=== PATIENT | male | born 1970 | race Hispanic/Latino ===

== ENCOUNTER 2024-12-09 16:13 | Inpatient (IN) | payer MEDICARE ==
[~2024-12-09] VITALS: Ht 149.9 cm; Wt 79.4 kg
[~2024-12-09 16:13] MED LIST: ASPIRIN81 MG PO; ATORVASTATIN CA20 MG PO; BENICAR20 MG PO; ELIQUIS5 MG PO; FENOFIBRATE145 MG PO; JARDIANCE10 MG PO; LEVEMIR100 UNIT/1 SQ; LEVOTHYROXINE75 MCG PO; LISINOPRIL10 MG PO; LOVENOX120 MG/0.8 SC; METFORMIN HCL500 MG PO; OZEMPIC1 MG/0.71 SQ; TRICOR145 MG PO
[2024-12-09 16:37] LABS: BASOPHILS % 0.5 % (0.0-1.0); EOSINOPHILS % 3.5 % (0.0-6.0); LYMPHOCYTES % 22.1 % (18.0-39.1); MONOCYTES % 6.2 % (4.4-11.3); NEUTROPHILS % 67.4 % (38.7-80.0); RED CELL DISTRIBUTION WIDTH 13.0 % (11.7-14.4)
[2024-12-09 16:52] VITALS: TEMP 99.2
[2024-12-09 16:53] LABS: EST GLOMERULAR FILTRATION RATE 67.0 ML/MIN (>=60)
[2024-12-09] MEDS ORDERED: Morphine 2mg Syringe 2 MG/ML SYR IV PRN (17:15)
[2024-12-09] MEDS ORDERED: ONDANSETRON HCL INJ 2MG/ML 2ML 2 MG/ML VIAL IV PRN (17:15)
[2024-12-09] MEDS: SODIUM CHLORIDE 0.9% 1000ML 1,000 ML IV SCH (17:22)
[2024-12-09 20:00] VITALS: PULSE 80; RESP 17
[2024-12-09 20:29] VITALS: BP 135/84; PULSE 74; RESP 20; TEMP 98.6; O2SAT 100
[2024-12-09 21:00] VITALS: BP 135/84; PULSE 74; RESP 20; TEMP 98.6; O2SAT 100
[2024-12-09] MEDS ORDERED: LANTUS 3ML100 UNITS/ SQ (22:03)
[2024-12-09] MEDS ORDERED: NOVOLOG100 UNITS1 SC (22:12)
[2024-12-10] VITALS (8 sets, daily range): BP systolic 135–163; BP diastolic 79–93; PULSE 72–84; RESP 18–20; TEMP 97.2–98.7; O2SAT 97–100
[2024-12-10 05:03] LABS: BASOPHILS % 0.6 % (0.0-1.0); EOSINOPHILS % 6.6 % (0.0-6.0); LYMPHOCYTES % 34.7 % (18.0-39.1); MONOCYTES % 7.4 % (4.4-11.3); NEUTROPHILS % 50.3 % (38.7-80.0); RED CELL DISTRIBUTION WIDTH 12.9 % (11.7-14.4)
[2024-12-10 05:56] LABS: EST GLOMERULAR FILTRATION RATE 64.0 ML/MIN (>=60)
[2024-12-10] MEDS ORDERED: ONDANSETRON HCL INJ 2MG/ML 2ML 2 MG/ML VIAL IV PRN (08:45)
[2024-12-10] MEDS ORDERED: HYDRALAZINE HCL 20 MG/ML VIAL IV PRN (08:45)
[2024-12-10] MEDS ORDERED: DEXTROSE 50% SYRINGE 50 ML IV PRN (08:45)
[2024-12-10] MEDS ORDERED: HYDROCODONE/APAP 7.5MG-325MG 1 EA TAB PO PRN (08:45)
[2024-12-10] MEDS: FENOFIBRATE 134 MG TAB PO SCH (09:00)
[2024-12-10] MEDS: LEVOTHYROXINE SODIUM 100 MCG TAB PO SCH (10:03)
[2024-12-10] MEDS: SENNA-S TABLET PO SCH (10:03)
[2024-12-10] MEDS: EMPAGLIFLOZIN 10 MG TABLET PO SCH (10:03)
[2024-12-10] MEDS: INSULIN LISPRO 100 UNIT/1 ML 3ML VIAL SQ SCH ×3 (11:20→15:18)
[2024-12-10] MEDS: INSULIN GLARGINE 100 UNITS/ML VIAL SQ SCH (15:31)
[2024-12-10] MEDS ORDERED: INSULIN GLARGINE 100 UNITS/ML VIAL SQ SCH (17:00)
[2024-12-10] MEDS: ATORVASTATIN 40 MG TAB PO SCH (21:44)
[2024-12-11] VITALS (9 sets, daily range): BP systolic 102–142; BP diastolic 40–97; PULSE 72–84; RESP 14–22; TEMP 97.7–99.8; O2SAT 97–100
[2024-12-11 05:34] LABS: BASOPHILS % 0.7 % (0.0-1.0); EOSINOPHILS % 5.3 % (0.0-6.0); LYMPHOCYTES % 35.8 % (18.0-39.1); MONOCYTES % 7.5 % (4.4-11.3); NEUTROPHILS % 50.5 % (38.7-80.0); RED CELL DISTRIBUTION WIDTH 12.9 % (11.7-14.4)
[2024-12-11 06:27] LABS: EST GLOMERULAR FILTRATION RATE 78.0 ML/MIN (>=60)
[2024-12-11] MEDS: METOPROLOL SUCCINATE 25 MG TAB XL PO SCH (09:33)
[2024-12-12] VITALS: BP 127/82; PULSE 79; RESP 18; TEMP 98.5; O2SAT 97
[2024-12-12 04:00] VITALS: BP 113/73; PULSE 75; RESP 19; TEMP 98.1; O2SAT 97
[2024-12-12 05:42] LABS: INR 1.09
[2024-12-12 08:00] VITALS: BP 101/73; PULSE 72; RESP 17; TEMP 98.1; O2SAT 98
[2024-12-12] MEDS ORDERED: ROCURONIUM BROMIDE 1 ML IV ONE (08:59)
[2024-12-12] MEDS ORDERED: LIDOCAINE HCL 2% LOCAL INJ 5 ML SDV VIAL INJ ONE (08:59)
[2024-12-12] MEDS ORDERED: FENTANYL CITRATE/PF 100MCG/2 ML INJ ONE (08:59)
[2024-12-12] MEDS ORDERED: MIDAZOLAM HCL 2 MG/2 ML VIAL ONE (08:59)
[2024-12-12] MEDS ORDERED: SEVOFLURANE INHAL SOLN 250 ML PEN BTL ONE (08:59)
[2024-12-12] MEDS ORDERED: PROPOFOL IV EMULSION 10 MG/ML 20 ML VIAL ONE (08:59)
[2024-12-12] MEDS ORDERED: ACETAMINOPHEN 1000 MG/100 ML 100 ML IV ONE (08:59)
[2024-12-12] MEDS ORDERED: ONDANSETRON HCL INJ 2MG/ML 2ML 2 MG/ML VIAL IV PRN (11:45)
[2024-12-12] MEDS ORDERED: CARISOPRODOL 350 MG TAB PO PRN (11:45)
[2024-12-12] MEDS ORDERED: PROMETHAZINE HCL (IM) 25 MG/ML VIAL IM PRN (11:45)
[2024-12-12] MEDS ORDERED: ACETAMINOPHEN 325 MG TAB PO PRN (11:45)
[2024-12-12] MEDS ORDERED: Morphine 10mg syringe 10 MG/ML INJ IM PRN (11:45)
[2024-12-12] MEDS ORDERED: ZOLPIDEM TARTRATE 5 MG TAB PO PRN (11:45)
[2024-12-12] MEDS ORDERED: OXYCODONE/ACETAMINOPHEN 5-325 1 EACH TABLET PO PRN (11:45)
[2024-12-12] MEDS ORDERED: ONDANSETRON HCL INJ 2MG/ML 2ML 2 MG/ML VIAL ONE (11:53)
[2024-12-12] MEDS ORDERED: DEXAMETHASONE SOD PHOS INJ 4 MG/ML SDV ONE (11:53)
[2024-12-12] MEDS ORDERED: PHENYLEPHRINE HCL 1% 10 MG/ML VIAL ONE (11:56)
[2024-12-12] MEDS ORDERED: SODIUM CHLORIDE 0.9% 100 ML ONE (11:59)
[2024-12-12] MEDS ORDERED: SUGAMMADEX SODIUM 200 MG/2 ML VIAL IV ONE (12:39)
[2024-12-12 14:20] VITALS: BP 115/68; PULSE 68; RESP 18; TEMP 97.6; O2SAT 95
[2024-12-12 16:00] VITALS: BP 102/71; PULSE 71; RESP 17; TEMP 97.5; O2SAT 100
[2024-12-12] MEDS: LACTATED RINGER'S 1,000 ML IV SCH (16:14)
[2024-12-12 20:00] VITALS: BP 112/77; PULSE 82; RESP 18; TEMP 97.9; O2SAT 92
[2024-12-13 05:19] LABS: BASOPHILS % 0.1 % (0.0-1.0); EOSINOPHILS % 0.0 % (0.0-6.0); LYMPHOCYTES % 12.1 % (18.0-39.1); MONOCYTES % 4.3 % (4.4-11.3); NEUTROPHILS % 83.3 % (38.7-80.0); RED CELL DISTRIBUTION WIDTH 12.8 % (11.7-14.4)
[2024-12-13 05:56] LABS: EST GLOMERULAR FILTRATION RATE 59.0 ML/MIN (>=60)
[2024-12-13 06:19] LABS: PHOSPHORUS 3.5 MG/DL (2.3-4.7)
[2024-12-13 08:58] VITALS: BP_SYST 129; BP_DIAS 77; BP_DIAS 79; PULSE 90; RESP 16; TEMP 98.4; O2SAT 97
[2024-12-13] MEDS ORDERED: MAGNESIUM SULFATE 2GM/50ML IV ONE (09:00)
[2024-12-13] MEDS: MAGNESIUM SULFATE 2GM/50ML 50 ML IV ONE (09:41)
[2024-12-13 12:58] VITALS: BP 122/76; PULSE 80; RESP 16; TEMP 98.6; O2SAT 97
[2024-12-13 16:23] VITALS: BP 109/72; PULSE 85; RESP 16; TEMP 98.9; O2SAT 97
[2024-12-13] MEDS: INSULIN GLARGINE 100 UNITS/ML VIAL SQ SCH (16:43)
[2024-12-13] MEDS: INSULIN LISPRO 100 UNIT/1 ML 3ML VIAL SQ SCH (16:47)
[2024-12-13 21:01] VITALS: BP 139/80; PULSE 82; RESP 18; TEMP 98.1; O2SAT 99
[2024-12-13 21:10] VITALS: BP 139/80; PULSE 82; RESP 18; TEMP 98.1; O2SAT 99
[2024-12-13 23:50] VITALS: BP 120/74; PULSE 84; RESP 18; TEMP 97; O2SAT 97
[2024-12-14] VITALS (7 sets, daily range): BP systolic 108–121; BP diastolic 72–84; PULSE 76–85; RESP 16–18; TEMP 97.3–99; O2SAT 96–99
[2024-12-14 05:47] LABS: BASOPHILS % 0.5 % (0.0-1.0); EOSINOPHILS % 2.0 % (0.0-6.0); LYMPHOCYTES % 21.8 % (18.0-39.1); MONOCYTES % 7.3 % (4.4-11.3); NEUTROPHILS % 68.0 % (38.7-80.0); RED CELL DISTRIBUTION WIDTH 13.1 % (11.7-14.4)
[2024-12-14 06:52] LABS: EST GLOMERULAR FILTRATION RATE 72.0 ML/MIN (>=60)
[2024-12-14] MEDS: INSULIN LISPRO 100 UNIT/1 ML 3ML VIAL SQ SCH (16:38)
[2024-12-14] MEDS: MAGNESIUM/ALUMINUM/SIMETHICONE 30 ML UDC PO PRN (16:40)
[2024-12-15 03:57] VITALS: BP 112/75; PULSE 70; RESP 16; TEMP 97.9; O2SAT 99
[2024-12-15 08:13] VITALS: BP 122/86; PULSE 71; RESP 17; TEMP 97.9; O2SAT 98
[2024-12-15 09:38] VITALS: BP 122/86; PULSE 71; RESP 17; TEMP 97.9; O2SAT 98
[2024-12-15 16:39] VITALS: BP 119/85; PULSE 74; RESP 16; TEMP 98.2; O2SAT 97
[2024-12-15 20:00] VITALS: BP 118/82; PULSE 82; RESP 16; TEMP 98.3; O2SAT 100
[2024-12-16] VITALS (7 sets, daily range): BP systolic 106–127; BP diastolic 69–86; PULSE 76–84; RESP 18–20; TEMP 97.5–98.6; O2SAT 98–100
[2024-12-16] MEDS: INSULIN GLARGINE 100 UNITS/ML VIAL SQ SCH (17:28)
[2024-12-17 05:00] VITALS: BP 127/90; PULSE 75; RESP 18; TEMP 97.8; O2SAT 97
[2024-12-17 05:27] LABS: BASOPHILS % 0.4 % (0.0-1.0); EOSINOPHILS % 4.7 % (0.0-6.0); LYMPHOCYTES % 30.0 % (18.0-39.1); MONOCYTES % 7.1 % (4.4-11.3); NEUTROPHILS % 57.4 % (38.7-80.0); RED CELL DISTRIBUTION WIDTH 12.7 % (11.7-14.4)
[2024-12-17 05:54] LABS: EST GLOMERULAR FILTRATION RATE 89.0 ML/MIN (>=60)
[2024-12-17 07:45] VITALS: BP_SYST 133; BP_DIAS 3; BP_DIAS 93; PULSE 76; RESP 16; TEMP 97.8; O2SAT 99
[2024-12-17 11:45] VITALS: BP 118/66; PULSE 74; RESP 16; TEMP 97.6; O2SAT 99
[2024-12-17 15:45] VITALS: BP 107/73; PULSE 75; RESP 16; TEMP 98.1; O2SAT 99
[2024-12-17 20:00] VITALS: BP 128/80; PULSE 79; RESP 18; TEMP 97.9; O2SAT 98
[2024-12-18 04:00] VITALS: BP_SYST 114; BP_SYST 141; BP_DIAS 77; BP_DIAS 82; PULSE 77; RESP 18; TEMP 97.5; TEMP 97.9; O2SAT 98
[2024-12-18 07:00] VITALS: BP 111/79; PULSE 73; RESP 18; TEMP 97.8; O2SAT 99
[2024-12-18] MEDS ORDERED: ONDANSETRON HCL 4 MG ORAL DISINTEGRATING TAB PO PRN (08:45)
[2024-12-18] MEDS ORDERED: ZOLPIDEM TARTRATE 5 MG TAB PO PRN (08:45)
[2024-12-18 11:00] VITALS: BP 119/77; PULSE 82; RESP 18; TEMP 98.4; O2SAT 95
[2024-12-18] MEDS ORDERED: OXYCODONE/ACETAMINOPHEN 5-325 1 EACH TABLET PO PRN (11:45)
[2024-12-18 15:00] VITALS: BP 121/86; PULSE 79; RESP 18; TEMP 98.4; O2SAT 95
== END 2024-12-18 17:50 | DRG 519 ==
LOC: ER 16:16 → ERHOLD 17:10 → MED/SURG 21:08
PROVIDERS: ADMIT Internal Medicine; ATTEND Internal Medicine
PROC: 00NY0ZZ Release Lumbar Spinal Cord, Open Approach (ICD-10-PCS; principal; 2024-12-09)
PROC: 01NB0ZZ Release Lumbar Nerve, Open Approach (ICD-10-PCS; 2024-12-09)
DX: M48.062 Spinal stenosis, lumbar region with neurogenic claudication (principal); G83.4 Cauda equina syndrome; S32.059A Unspecified fracture of fifth lumbar vertebra, initial encounter for closed fracture; M48.04 Spinal stenosis, thoracic region; E11.65 Type 2 diabetes mellitus with hyperglycemia; M51.16 Intervertebral disc disorders with radiculopathy, lumbar region; E03.9 Hypothyroidism, unspecified; I10 Essential (primary) hypertension; E78.5 Hyperlipidemia, unspecified; R53.1 Weakness; E66.9 Obesity, unspecified; Z68.35 Body mass index [BMI] 35.0-35.9, adult; Z79.01 Long term (current) use of anticoagulants; Z79.82 Long term (current) use of aspirin; Z79.4 Long term (current) use of insulin; Z79.85 Long-term (current) use of injectable non-insulin antidiabetic drugs; Z79.84 Long term (current) use of oral hypoglycemic drugs; Z79.890 Hormone replacement therapy; Z86.718 Personal history of other venous thrombosis and embolism
CPT/HCPCS: 36415; 72020; 72148; 80048; 80053; 82948; 83036; 83735; 84100; 84439; 85025; 85610; 85730; 86850; 86900; 88304; 88311; 93306; 96372; 99284; J0690; J1100; J1815; J2003; J2250; J2371; J2405; J3475; J7030; J7050